=== PATIENT | male | born 1985 | race Caucasian/White ===

== ENCOUNTER 2017-10-28 09:46 | Emergency (ER) | payer OTHER ==
[2017-10-28] MEDS ORDERED: Ativan 2 MG/1 ML VIAL ONE ×3 (10:09→12:00)
[2017-10-28] MEDS ORDERED: Sodium Chloride 0.9% 1000 ML 1,000 ML ONE ×3 (10:09→12:00)
[2017-10-28] MEDS ORDERED: BENADRYL 50 MG/ML ONE ×2 (10:10→10:41)
[2017-10-28] MEDS: Sodium Chloride 0.9% 1000 ML 1,000 ML IV STA ×3 (10:11→12:03)
[2017-10-28] MEDS: Ativan 2 MG/1 ML VIAL IV ONE ×3 (10:11→12:40)
[2017-10-28] MEDS: BENADRYL 50 MG/ML IV ONE ×2 (10:12→10:41)
--- NOTE | 2017-10-28 10:16 | ERPHSYRPT ---
- History of Present Illness Time Seen by Provider: 10/28/17 09:52 Source: patient, EMS Exam Limitations: no limitations Patient Subjective Stated Complaint: Pt states "I have smoked 14 grams of meth since last friday and today I keep passing out." Triage Nursing Assessment: Pt alert and oriented X 3, skin pwd. PT unable to sit still. Pt arrived in shorts only. Pt had no shirt, no shoes. PT left eye blind. Pt speakin rapidly. no apparent respiratory distress. Pt arrived BLS transport. Physician History: Pt states, he smoked 14 g of Meth. since Friday ( 4 days), he arrived with ambulance. He states, he fell twice on his porch, denies severe head or other injury, LOC, headaches, chest pain, vomiting or other complaints. He is restless , with uncontrolled involuntary movements, but alert and oriented x4, not lethargic, not tachycardiac or febrile, no sign of respiratory difficulty.He denies being suicidal or homicidal. Timing/Duration: day(s) (4) Severity of Symptoms-Max: severe Severity of Symptoms-Current: severe Context related to: other (denies) Suicidal thoughts: other (denies) Associated Symptoms: denies symptoms Previous symptoms: same symptoms as today Allergies/Adverse Reactions: Penicillins Allergy (Intermediate, Verified 12/19/15 14:31) RED MAN SYNDROME Home Medications: No Reportable Medications [No Reported Medications] 10/28/17 [History] Hx Tetanus, Diphtheria Vaccination/Date Given: Yes Hx Influenza Vaccination/Date Given: Yes Hx Pneumococcal Vaccination/Date Given: No Immunizations Up to Date: Yes - Past Medical History Pertinent Past Medical History: Yes Neurological History: Migraines, Other ENT History: Other Cardiac History: No Pertinent History Respiratory History: No Pertinent History Endocrine Medical History: No Pertinent History Musculoskeletal History: No Pertinent History GI Medical History: No Pertinent History History: No Pertinent History Psycho-Social History: Bipolar Male Reproductive Disorders: No Pertinent History Other Medical History: Non-Hodgkins Lymphoma - Past Surgical History Neuro Surgical History: Other Cardiac: No Pertinent History Respiratory: No Pertinent History Gastrointestinal: No Pertinent History Genitourinary: No Pertinent History Musculoskeletal: No Pertinent History Male Surgical History: No Pertinent History Other Surgical History: L EYE REMOVAL. BRAIN - Social History Smoking Status: Current every day smoker How long have you smoked: years Exposure to second hand smoke: Yes Drug Use: marijuana, methamphetamines Patient Lives Alone: No - Review of Systems Constitutional: No Symptoms Psychological: Drug Abuse, No Alcohol Abuse, No Suicidal Ideations, No Homicidal Ideations, No Hallucinations All Other Systems: Reviewed and Negative - Nursing Vital Signs Nursing Vital Signs: Initial Vital Signs Temperature 97.8 F 10/28/17 09:47 Pulse Rate 102 H 10/28/17 09:47 Respiratory Rate 22 10/28/17 09:47 Blood Pressure 115/93 10/28/17 09:47 O2 Sat by Pulse Oximetry 96 10/28/17 09:47 Pain Scale Pain Intensity 0 - Physical Exam General Appearance: no apparent distress Eyes, Ears, Nose, Throat Exam: normal ENT inspection, pharynx normal, moist mucous membranes, other (left eye is missing due to old injury) Neck Exam: normal inspection, non-tender, supple, full range of motion, No carotid bruit, No JVD Respiratory Exam: normal breath sounds, lungs clear, airway intact, No chest tenderness, No respiratory distress Cardiovascular Exam: regular rate/rhythm, normal heart sounds, normal peripheral pulses, No murmur, No gallop, No tachycardia Gastrointestinal/Abdominal Exam: soft, normal bowel sounds, No tenderness, No distention, No mass, No guarding, No ecchymosis, No rebound Peripheral Pulses: carotid (R): 3+, carotid (L): 3+, femoral (R): 3+, femoral (L ): 3+, dorsalis-pedis (R): 3+, dorsalis-pedis (L): 3+ Current Suicidality: denies suicide plan Neurological Exam: alert, normal mood/affect, calm, oriented x 3, motor strength (equal, involuntary movements in all extremitites) Behavior/Eye Contact/Speech: alert & cooperative, intoxicated appearance Skin Exam: normal color, warm, dry, No rash SpO2 Interpretation: normal SpO2: 96 Oxygen Delivery: Room Air - Course Nursing assessment & vital signs reviewed: Yes EKG Interpreted by Me: RATE (100/min), NORMAL AXIS, NORMAL INTERVALS, Non- specific ST Changes - Radiology Exams Chest X-ray Interpretation: Reviewed by me, Negative - CT Exams Head CT Interpretation: Negative, Tele-radiologist Report Cervical Spine CT Interpretation: Negative, Tele-radiologist Report Ordered Tests: Active Orders 24 hr Category Date Time Status Sharepoint Developer STAT Care 10/28/17 09:53 Active Catheter-[place] STAT Care 10/28/17 12:03 Active EKG-ER Only STAT Care 10/28/17 09:52 Active IV Insertion STAT Care 10/28/17 09:52 Active CERVICAL SPINE WO CONTRAST [CT] Stat Exams 10/28/17 10:09 Completed CHEST 1 VIEW (PORTABLE) Stat Exams 10/28/17 10:10 Completed HEAD WITHOUT CONTRAST [CT] Stat Exams 10/28/17 10:09 Completed ACETAMINOPHEN Stat Lab 10/28/17 10:05 Completed CBC W DIFF Stat Lab 10/28/17 10:05 Completed CK-Creatinine Phosphokinase Stat Lab 10/28/17 10:05 Completed CMP Stat Lab 10/28/17 10:05 Completed ETHYL ALCOHOL Stat Lab 10/28/17 10:05 Completed MAGNESIUM Stat Lab 10/28/17 10:05 Completed Manual Differential NC Stat Lab 10/28/17 10:05 Completed SALICYLATE Stat Lab 10/28/17 10:05 Completed TROPONIN Q3H Lab 10/28/17 10:05 Completed TROPONIN Q3H Lab 10/28/17 13:00 Ordered TROPONIN Q3H Lab 10/28/17 16:00 Ordered TROPONIN Q3H Lab 10/28/17 19:00 Ordered TROPONIN Q3H Lab 10/28/17 22:00 Ordered UA W/RFX UR CULTURE Stat Lab 10/28/17 12:53 Ordered Urine Triage Profile Stat Lab 10/28/17 12:53 Ordered Medication Summary Generic Name Dose Route Start Last Admin Trade Name Freq PRN Reason Stop Dose Admin Potassium Chloride/Sodium Chloride 1,000 mls @ 100 mls/hr 10/28/17 12:45 07/13 12:45 Sodium Chloride 0.9% W/ 20 Meq Kcl/Liter IV 11/27/17 12:44 100 mls/hr .Q10H NOEMI Administration Discontinued Medications Generic Name Dose Route Start Last Admin Trade Name Freq PRN Reason Stop Dose Admin Diphenhydramine HCl 25 mg 10/28/17 10:10 10/28/17 10:12 Benadryl 50 Mg/Ml IV 10/28/17 10:11 25 mg STAT ONE Administration Diphenhydramine HCl Confirm 10/28/17 10:10 Benadryl 50 Mg/Ml Administered 10/28/17 10:11 Dose 50 mg .ROUTE .STK-MED ONE Diphenhydramine HCl 25 mg 10/28/17 10:37 10/28/17 10:41 Benadryl 50 Mg/Ml IV 10/28/17 10:38 25 mg STAT ONE Administration Diphenhydramine HCl Confirm 10/28/17 10:41 Benadryl 50 Mg/Ml Administered 10/28/17 10:42 Dose 50 mg .ROUTE .STK-MED ONE Sodium Chloride 1,000 mls @ 999 mls/hr 10/28/17 09:52 10/28/17 11:07 Sodium Chloride 0.9% 1000 Ml IV 10/28/17 10:52 Infused .Q1H1M STA Infusion Sodium Chloride Confirm 10/28/17 10:09 Sodium Chloride 0.9% 1000 Ml Administered 10/28/17 10:10 Dose 1,000 mls @ ud .ROUTE .STK-MED ONE Sodium Chloride 1,000 mls @ 999 mls/hr 10/28/17 11:02 10/28/17 11:06 Sodium Chloride 0.9% 1000 Ml IV 10/28/17 12:02 999 mls/hr .Q1H1M STA Administration Sodium Chloride Confirm 10/28/17 11:05 Sodium Chloride 0.9% 1000 Ml Administered 10/28/17 11:06 Dose 1,000 mls @ ud .ROUTE .STK-MED ONE Sodium Chloride 1,000 mls @ 999 mls/hr 10/28/17 11:55 10/28/17 12:03 Sodium Chloride 0.9% 1000 Ml IV 10/28/17 12:55 999 mls/hr .Q1H1M STA Administration Sodium Chloride Confirm 10/28/17 12:00 Sodium Chloride 0.9% 1000 Ml Administered 10/28/17 12:01 Dose 1,000 mls @ ud .ROUTE .STK-MED ONE Lorazepam 1 mg 10/28/17 09:52 10/28/17 10:11 Ativan 2 Mg/1 Ml Vial IV 10/28/17 09:53 1 mg STAT ONE Administration Lorazepam Confirm 10/28/17 10:09 Ativan 2 Mg/1 Ml Vial Administered 10/28/17 10:10 Dose 2 mg .ROUTE .STK-MED ONE Lorazepam 1 mg 10/28/17 11:02 10/28/17 11:05 Ativan 2 Mg/1 Ml Vial IV 10/28/17 11:03 1 mg STAT ONE Administration Lorazepam Confirm 10/28/17 11:05 Ativan 2 Mg/1 Ml Vial Administered 10/28/17 11:06 Dose 2 mg .ROUTE .STK-MED ONE Lorazepam Confirm 10/28/17 12:00 Ativan 2 Mg/1 Ml Vial Administered 10/28/17 12:01 Dose 2 mg .ROUTE .STK-MED ONE Lorazepam 1 mg 10/28/17 12:38 10/28/17 12:40 Ativan 2 Mg/1 Ml Vial IV 10/28/17 12:39 1 mg STAT ONE Administration Lab/Rad Data: Laboratory Result Diagrams 10/28/17 10:05 10/28/17 10:05 Laboratory Results 10/28/17 10/28/17 10/28/17 Range/Units 10:05 10:05 10:05 WBC 14.6 H (4.0-10.5) K/mm3 RBC 5.17 (4.1-5.6) M/mm3 Hgb 15.2 (12.5-18.0) gm/dl Hct 43.8 (42-50) % MCV 84.7 (78-100) fl MCH 29.4 (26-32) pg MCHC 34.7 (32-36) g/dl RDW 13.3 (11.5-14.0) % Plt Count 254 (150-450) K/mm3 MPV 10.2 H (6-9.5) fl Absolute Granulocytes 10.92 H (1.4-6.9) Sodium 137 (137-145) mmol/L Potassium 3.2 L (3.5-5.1) mmol/L Chloride 98 (98-107) mmol/L Carbon Dioxide 25 (22-30) mmol/L Anion Gap 14.0 (5-15) MEQ/L BUN 29 H (9-20) mg/dL Creatinine 2.04 H (0.66-1.25) mg/dL Estimated GFR 39.9 ML/MIN Glucose 86 (74-106) mg/dL Calcium 9.8 (8.4-10.2) mg/dL Magnesium 1.9 (1.6-2.3) mg/dL Total Bilirubin 0.90 (0.2-1.3) mg/dL AST 265 H (17-59) U/L ALT 99 H (0-50) U/L Alkaline Phosphatase 85 (38-126) U/L Creatine Kinase 9147 H (55-170) U/L Troponin I < 0.012 (0.000-0.034) ng/mL Serum Total Protein 8.3 H (6.3-8.2) g/dL Albumin 5.1 H (3.5-5.0) g/dL Salicylates < 1.0 L (2-20) mg/dL Acetaminophen < 10 L (10-30) ug/ml Ethyl Alcohol < 10 (0-10) mg/dL - Progress Progress: improved Progress Note: 10/28/17 12:43 Pt was given 2000 + ml NS, Herbert catheter inserted, small amount of clean urine drained, his potassium was 3.2 started slowly replacing it via iv NS + 20 meq KCL, CT head and Cervical spine negative, he was given 3x 1mg Ativan, and 25 mg Benadryl iv., calmed down, stopped his involuntary movements, his BP: 112/74 mmHg, pulse: 96/min, O2 sat: 98 % on R/A, afebrile, stable. I called Dr Stauffer in [facility] ED, discussed our results and patient's current condition, he accepted patient to be transferred there. Pt was informed, he agreed. He has been stable for the transport. Discussed with Dr.: Other (Dr Stauffer in [facility] ED) Counseled pt/family regarding: lab results, diagnosis, rad results - Departure Time of Disposition: 12:47 Departure Disposition: Transfer (to [facility] ED in [place]) Clinical Impression: Substance abuse, Hypokalemia Rhabdomyolysis Qualifiers: Rhabdomyolysis type: non-traumatic Qualified Code(s): M62.82 - Rhabdomyolysis Renal failure Qualifiers: Renal failure chronicity: acute Acute renal failure type: unspecified Qualified Code(s): N17.9 - Acute kidney failure, unspecified Condition: Stable Critical Care Time: No Critical Care Time(excluding separately billable procedures): 30-74 minutes Referrals: ANAND PERDOMO [Primary Care Provider] -
[2017-10-28 10:25] LABS: Granulocyte Absolute (ANC) 10.92 (1.4-6.9); Hematocrit 43.8 % (42-50); Hemoglobin 15.2 gm/dl (12.5-18.0); Mean Cell Volume 84.7 fl (78-100); Mean Corpuscular Hemoglobin 29.4 pg (26-32); Mean Corpuscular Hgb Concent. 34.7 g/dl (32-36); Mean Platelet Volume 10.2 fl (6-9.5); Platelet Count 254 K/mm3 (150-450); Red Blood Count 5.17 M/mm3 (4.1-5.6); Red Cell Distribution Width 13.3 % (11.5-14.0); White Blood Count 14.6 K/mm3 (4.0-10.5)
--- NOTE | 2017-10-28 10:31 | XRAY ---
Indication: Status post fall. Drug use. Comparison: November 03, 2008. Portable chest again demonstrates normal heart, lungs, and bony thorax with new bilateral nipple jewelry.
[2017-10-28 10:44] LABS: ALBUMIN 5.1 g/dL (3.5-5.0); ALKALINE PHOSPHATASE 85 U/L (38-126); BLOOD UREA NITROGEN 29 mg/dL (9-20); CHLORIDE 98 mmol/L (98-107); Calcium 9.8 mg/dL (8.4-10.2); Carbon Dioxide 25 mmol/L (22-30); Creatinine 1 2.04 mg/dL (0.66-1.25); Glucose 86 mg/dL (74-106); SGOT/AST 265 U/L (17-59); SGPT/ALT 99 U/L (0-50); SODIUM 137 mmol/L (137-145); Total Protein 8.3 g/dL (6.3-8.2)
[2017-10-28 10:45] LABS: Potassium 3.2 mmol/L (3.5-5.1)
[2017-10-28 10:49] LABS: ACETAMINOPHEN < 10 ug/ml (10-30); ETHYL ALCOHOL < 10 mg/dL (0-10); SALICYLATE < 1.0 mg/dL (2-20)
[2017-10-28 11:19] LABS: CK-Creatinine Phosphokinase 9147 U/L (55-170)
--- NOTE | 2017-10-28 11:19 | XRAY ---
Indication: Status post fall. Drug use. Multiple contiguous axial images obtained through the cervical spine. Sagittal and coronal reformatted images obtained. Comparison: None. Axial images negative for acute fracture, suspicious bony lesions, or spinal canal stenosis. Minimal C5-C6 degenerative endplate spurring with tiny subcortical cysts. Sagittal and coronal reformatted images demonstrates normal cervical alignment with minimal C5-C6 disc space narrowing. No acute compression fracture, subluxation, or jumped facet. Normal appearing craniocervical junction. Visualized noncontrasted soft tissues including lung apices unremarkable. CT head reported separately. Impression: 1. Negative acute fracture/subluxation. 2. C5-C6 degenerative changes. CTDI 20.87
--- NOTE | 2017-10-28 11:20 | XRAY ---
Indication: Status post fall. Drug use. Multiple contiguous axial images obtained through the head without contrast. Comparison: April 10, 2007. Stable right frontal lobe encephalomalacia and left anterior parietal craniotomy. No acute intracranial hemorrhage, hydrocephalus, or mass effect. Fourth ventricle is midline without hydrocephalus. Osborne-white matter differentiation preserved. Remaining bony calvarium intact. Visualized paranasal sinuses and mastoid air cells are clear. New prosthetic left orbit. Impression: Again nonacute CT head without contrast exam again with chronic features. CTDI 60.26
[2017-10-28] MEDS ORDERED: Sodium Chloride 0.9% W/ 20 mEq KCl/LITER 1,000 ML IV ONE (12:44)
[2017-10-28] MEDS: Sodium Chloride 0.9% W/ 20 mEq KCl/LITER 1,000 ML IV SCH (12:45)
[2017-10-28 12:47] VITALS: O2SAT 96
[2017-10-28 13:09] VITALS: BP 112/67; PULSE 93
[2017-10-28 13:27] LABS: Appearance HAZY (CLEAR); Leukocyte Esterase NEGATIVE (NEGATIVE); Specific Gravity 1.025 (1.005-1.025)
[2017-10-28 13:28] LABS: Bilirubin NEGATIVE (NEGATIVE); Blood 250 Ery/ul (0-5); Glucose NEGATIVE (NEGATIVE); Ketones MODERATE (NEGATIVE); Nitrite NEGATIVE (NEGATIVE); Protein,Urine Dip 30 (Negative); Urobilinogen NORMAL mg/dL (0-1)
[2017-10-28 13:29] LABS: RBC 50-100 /HPF (0-2); WBC 0-2 /HPF (0-5)
[2017-10-28 13:31] LABS: Bacteria RARE /HPF (NEGATIVE); Barbiturate,Urine NEGATIVE (NEGATIVE); Benzodiazepine,Urine NEGATIVE (NEGATIVE); Cocaine,Urine NEGATIVE (NEGATIVE); Epithelial Cells RARE /HPF (FEW); Methadone,Urine NEGATIVE (NEGATIVE); Opiate,Urine NEGATIVE (NEGATIVE); PCP,Urine NEGATIVE (NEGATIVE); THC,Urine POSITIVE (NEGATIVE)
[2017-10-28 13:32] LABS: Hyaline Casts >50 /LPF (0-2)
[2017-10-28 14:04] LABS: Amphetamine,Urine POSITIVE (NEGATIVE)
[2017-10-28 14:25] LABS: BAND 2 % (0.0-2.0); Lymphocytes 13 % (24-44); Neutrophils 85 % (36.-66.); Platelet Estimate NORMAL (NORMAL); Total Cells Counted 100; Toxic Granulation 1+
== END 2017-10-28 13:26 | disposition short-term general hospital (02) ==
LOC: ED 09:46
DX: F15.10 Other stimulant abuse, uncomplicated (principal); E87.6 Hypokalemia; M62.82 Rhabdomyolysis; N17.9 Acute kidney failure, unspecified; F31.9 Bipolar disorder, unspecified; Z85.72 Personal history of non-Hodgkin lymphomas; Z72.0 Tobacco use
CPT/HCPCS: 36000; 36415; 51702; 70450; 71045; 72125; 80053; 80307; 81000; 82550; 83735; 84484; 85025; 87086; 93005; 93041; 96360; 96361; 96365; 96366; 96374; 96375; 96376; 99285; G0481; J1200; J2060; G0480

== ENCOUNTER 2018-01-16 09:15 | Emergency (ER) | payer OTHER ==
[2018-01-16] MEDS ORDERED: Sodium Chloride 0.9% 1000 ML 1,000 ML IV STA (09:43)
[2018-01-16] MEDS ORDERED: Ativan 2 MG/1 ML VIAL IV ONE (09:43)
[2018-01-16] MEDS ORDERED: Zofran 4 MG/2 ML VIAL IV ONE (09:43)
--- NOTE | 2018-01-16 09:43 | ERPHSYRPT ---
- History of Present Illness Time Seen by Provider: 01/16/18 09:30 Source: patient, EMS Exam Limitations: no limitations Patient Subjective Stated Complaint: pt here for not eating,sleeping for 5 days , pt walked to shelter to turn self in for drug abuse and shelter called [facility] to have pt [facility]. pt had syringes and meth on person. Triage Nursing Assessment: pt alert, slurred speach, restless and jerking all over, states he wants help and to go to shelter. he also co pain to right big toe, he states he stubbed it walking, pt is very dirty and dishovled, resp easy, skin w/d/p Physician History: 32 y/o white male brought to ED via ems for evaluation. pt was in shelter after pt turned himself in for methamphetamine use on a 5 day binge. last use 1 or 2 this am. also states used pot yesterday. the shelter contacted EMS for transfer to the ED. pt wants help. pt recently missed his [facility]pt appt with [facility]. pt denies suicidal or homicidal intention/thoughts. he c/o right 1st toe pain after injurying it yesterday. pt not eating or sleeping over this pd of time. no other c/o . Timing/Duration: day(s) (5) Severity of Symptoms-Max: moderate Severity of Symptoms-Current: moderate Context related to: other (drug abuse) Suicidal thoughts: other (none) Associated Symptoms: agitated, frustrated, impaired concentration, insomnia Previous symptoms: same symptoms as today Allergies/Adverse Reactions: Penicillins Allergy (Intermediate, Verified 01/16/18 09:26) RED MAN SYNDROME Home Medications: No Reportable Medications [No Reported Medications] 10/28/17 [History] Hx Tetanus, Diphtheria Vaccination/Date Given: No Hx Influenza Vaccination/Date Given: No Hx Pneumococcal Vaccination/Date Given: No Immunizations Up to Date: Yes - Past Medical History Pertinent Past Medical History: Yes Neurological History: Migraines, Other ENT History: Other Cardiac History: No Pertinent History Respiratory History: No Pertinent History Endocrine Medical History: No Pertinent History Musculoskeletal History: No Pertinent History GI Medical History: No Pertinent History History: No Pertinent History Psycho-Social History: Bipolar Male Reproductive Disorders: No Pertinent History Other Medical History: Non-Hodgkins Lymphoma - Past Surgical History Past Surgical History: Yes Neuro Surgical History: Other Cardiac: No Pertinent History Respiratory: No Pertinent History Gastrointestinal: No Pertinent History Genitourinary: No Pertinent History Musculoskeletal: No Pertinent History Male Surgical History: No Pertinent History Other Surgical History: L EYE REMOVAL. BRAIN - Social History Smoking Status: Current every day smoker How long have you smoked: years Exposure to second hand smoke: Yes Drug Use: marijuana, methamphetamines Patient Lives Alone: No (he states he has no where to go home too) - Review of Systems Constitutional: No Symptoms, No Fever, No Fatigue, No Malaise Eyes: No Symptoms, No Eye Pain, No Eye Redness Ears, Nose, & Throat: No Symptoms, No Ear Pain, No Ear Discharge Respiratory: No Symptoms, No Cough, No Dyspnea Cardiac: No Symptoms, No Chest Pain, No Palpitations, No Syncope Abdominal/Gastrointestinal: Appetite Changes (not eating), No Abdominal Pain, No Nausea, No Vomiting Genitourinary Symptoms: No Symptoms Musculoskeletal: Injury ( right first toe) Skin: No Symptoms Neurological: Tics Psychological: Drug Abuse, Anxiety, Emotional Lability, Other (insomnia) Hematologic/Lymphatic: No Symptoms Immunological/Allergic: No Symptoms All Other Systems: Reviewed and Negative - Nursing Vital Signs Nursing Vital Signs: Initial Vital Signs Temperature 97.8 F 01/16/18 09:18 Pulse Rate 86 01/16/18 09:18 Respiratory Rate 16 01/16/18 09:18 Blood Pressure 126/80 01/16/18 09:18 O2 Sat by Pulse Oximetry 97 01/16/18 09:18 Pain Scale Pain Intensity 0 - Physical Exam General Appearance: no apparent distress, alert, anxiety Eyes, Ears, Nose, Throat Exam: TMs normal, dry mucous membranes Neck Exam: normal inspection, non-tender, supple, full range of motion Respiratory Exam: normal breath sounds, lungs clear, airway intact, No chest tenderness, No respiratory distress, No accessory muscle use, No rhonchi, No wheezing, No stridor Cardiovascular Exam: regular rate/rhythm, normal heart sounds, normal peripheral pulses Gastrointestinal/Abdominal Exam: soft, normal bowel sounds, No tenderness, No distention, No mass, No guarding, No rebound Extremities Exam: normal range of motion, No evidence of injury, No edema, No tenderness Neurological Exam: alert, 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 tested, agitated, anxious Appearance: disheveled, impaired insight Behavior/Eye Contact/Speech: alert & cooperative, avoids eye contact, increased rate of speech, intoxicated appearance Thoughts/Hallucinations: no apparent hallucination, paranoid Skin Exam: normal color, warm SpO2: 97 Oxygen Delivery: Room Air - Course Nursing assessment & vital signs reviewed: Yes EKG Interpreted by Me: RATE (82), Sinus Rhythm (no change from ekg dated 10/28/17) , NORMAL AXIS, NORMAL INTERVALS, NORMAL QRS, NORMAL ST-T Ordered Tests: Active Orders 24 hr Category Date Time Status Granite Polisher Machine STAT Care 01/16/18 09:44 Active EKG-ER Only STAT Care 01/16/18 09:43 Active IV Insertion STAT Care 01/16/18 09:43 Active Psychiatric Consult STAT Cons 01/16/18 12:00 Active Regular Diet Diet 01/16/18 Lunch Active FOOT (MINIMUM 3 VIEWS) Stat Exams 01/16/18 10:28 Completed ACETAMINOPHEN Stat Lab 01/16/18 09:43 Completed CBC W DIFF Stat Lab 01/16/18 09:43 Completed CMP Stat Lab 01/16/18 09:43 Completed CULTURE,URINE Stat Lab 01/16/18 12:01 Received ETHYL ALCOHOL Stat Lab 01/16/18 09:43 Completed UA W/ MICROSCOPIC Stat Lab 01/16/18 12:01 Completed Urine Triage Profile Stat Lab 01/16/18 12:01 Completed Medication Summary Discontinued Medications Generic Name Dose Route Start Last Admin Trade Name Freq PRN Reason Stop Dose Admin Sodium Chloride 1,000 mls @ 999 mls/hr 01/16/18 09:43 01/16/18 10:17 Sodium Chloride 0.9% 1000 Ml IV 01/16/18 10:43 999 mls/hr .Q1H1M STA Administration Sodium Chloride Confirm 01/16/18 10:15 Sodium Chloride 0.9% 1000 Ml Administered 01/16/18 10:16 Dose 1,000 mls @ ud .ROUTE .STK-MED ONE Lorazepam 1 mg 01/16/18 09:43 01/16/18 10:20 Ativan 2 Mg/1 Ml Vial IV 01/16/18 09:44 1 mg STAT ONE Administration Lorazepam Confirm 01/16/18 10:15 Ativan 2 Mg/1 Ml Vial Administered 01/16/18 10:16 Dose 2 mg .ROUTE .STK-MED ONE Ondansetron HCl 4 mg 01/16/18 09:43 01/16/18 10:20 Zofran 4 Mg/2 Ml Vial IV 01/16/18 09:44 4 mg STAT ONE Administration Ondansetron HCl Confirm 01/16/18 10:15 Zofran 4 Mg/2 Ml Vial Administered 01/16/18 10:16 Dose 4 mg .ROUTE .STK-MED ONE Lab/Rad Data: Laboratory Result Diagrams 01/16/18 09:43 01/16/18 09:43 Laboratory Results 01/16/18 01/16/18 01/16/18 Range/Units 12:01 12:01 09:43 WBC (4.0-10.5) K/mm3 RBC (4.1-5.6) M/mm3 Hgb (12.5-18.0) gm/dl Hct (42-50) % MCV (78-100) fl MCH (26-32) pg MCHC (32-36) g/dl RDW (11.5-14.0) % Plt Count (150-450) K/mm3 MPV (6-9.5) fl Gran % (36.0-66.0) % Eos # (Auto) (0-0.5) Absolute Lymphs (auto) (1.0-4.6) Absolute Monos (auto) (0.0-1.3) Lymphocytes % (24.0-44.0) % Monocytes % (0.0-12.0) % Eosinophils % (0.00-5.0) % Basophils % (0.0-0.4) % Absolute Granulocytes (1.4-6.9) Basophils # (0-0.4) Sodium 136 L (137-145) mmol/L Potassium 3.6 (3.5-5.1) mmol/L Chloride 99 (98-107) mmol/L Carbon Dioxide 23 (22-30) mmol/L Anion Gap 17.7 H (5-15) MEQ/L BUN 23 H (9-20) mg/dL Creatinine 0.89 (0.66-1.25) mg/dL Estimated GFR > 60.0 ML/MIN Glucose 76 (74-106) mg/dL Calcium 10.0 (8.4-10.2) mg/dL Total Bilirubin 0.90 (0.2-1.3) mg/dL AST 55 (17-59) U/L ALT 34 (0-50) U/L Alkaline Phosphatase 90 (38-126) U/L Serum Total Protein 7.9 (6.3-8.2) g/dL Albumin 5.1 H (3.5-5.0) g/dL Ur Collection Type CLEAN CATCH Urine Color DARK YELLOW (YELLOW) Urine Appearance CLEAR (CLEAR) Urine pH 5.0 (5-6) Ur Specific [place] 1.030 (1.005-1.025) Urine Protein TRACE (Negative) Urine Ketones MODERATE (NEGATIVE) Urine Blood TRACE NON-HEM (0-5) Cirilo/ul Urine Nitrite NEGATIVE (NEGATIVE) Urine Bilirubin NEGATIVE (NEGATIVE) Urine Urobilinogen NORMAL (0-1) mg/dL Ur Leukocyte Esterase NEGATIVE (NEGATIVE) Urine Microscopic RBC 2-5 (0-2) /HPF Urine Microscopic WBC 0-2 (0-5) /HPF Ur Epithelial Cells FEW (FEW) /HPF Urine Bacteria MODERATE (NEGATIVE) /HPF Hyaline Casts 5-10 (0-2) /LPF Urine Mucus MODERATE (NEGATIVE) /HPF Urine Culture Reflexed YES (NO) Urine Glucose NEGATIVE (NEGATIVE) mg/dL Urine Opiates Level NEGATIVE (NEGATIVE) Ur Methadone NEGATIVE (NEGATIVE) Acetaminophen < 10 L (10-30) ug/ml Urine Barbiturates NEGATIVE (NEGATIVE) Ur Phencyclidine (PCP) NEGATIVE (NEGATIVE) Urine Amphetamine POSITIVE (NEGATIVE) U Benzodiazepine Level NEGATIVE (NEGATIVE) Urine Cocaine NEGATIVE (NEGATIVE) Urine Marijuana (THC) POSITIVE (NEGATIVE) Ethyl Alcohol < 10 (0-10) mg/dL 01/16/18 Range/Units 09:43 WBC 13.4 H (4.0-10.5) K/mm3 RBC 4.75 (4.1-5.6) M/mm3 Hgb 14.2 (12.5-18.0) gm/dl Hct 41.0 L (42-50) % MCV 86.3 (78-100) fl MCH 29.9 (26-32) pg MCHC 34.6 (32-36) g/dl RDW 14.8 H (11.5-14.0) % Plt Count 248 (150-450) K/mm3 MPV 9.9 H (6-9.5) fl Gran % 73.9 H (36.0-66.0) % Eos # (Auto) 0.07 (0-0.5) Absolute Lymphs (auto) 2.13 (1.0-4.6) Absolute Monos (auto) 1.25 (0.0-1.3) Lymphocytes % 15.9 L (24.0-44.0) % Monocytes % 9.3 (0.0-12.0) % Eosinophils % 0.5 (0.00-5.0) % Basophils % 0.4 (0.0-0.4) % Absolute Granulocytes 9.87 H (1.4-6.9) Basophils # 0.05 (0-0.4) Sodium (137-145) mmol/L Potassium (3.5-5.1) mmol/L Chloride (98-107) mmol/L Carbon Dioxide (22-30) mmol/L Anion Gap (5-15) MEQ/L BUN (9-20) mg/dL Creatinine (0.66-1.25) mg/dL Estimated GFR ML/MIN Glucose (74-106) mg/dL Calcium (8.4-10.2) mg/dL Total Bilirubin (0.2-1.3) mg/dL AST (17-59) U/L ALT (0-50) U/L Alkaline Phosphatase (38-126) U/L Serum Total Protein (6.3-8.2) g/dL Albumin (3.5-5.0) g/dL Ur Collection Type Urine Color (YELLOW) Urine Appearance (CLEAR) Urine pH (5-6) Ur Specific [place] (1.005-1.025) Urine Protein (Negative) Urine Ketones (NEGATIVE) Urine Blood (0-5) Ciriol/ul Urine Nitrite (NEGATIVE) Urine Bilirubin (NEGATIVE) Urine Urobilinogen (0-1) mg/dL Ur Leukocyte Esterase (NEGATIVE) Urine Microscopic RBC (0-2) /HPF Urine Microscopic WBC (0-5) /HPF Ur Epithelial Cells (FEW) /HPF Urine Bacteria (NEGATIVE) /HPF Hyaline Casts (0-2) /LPF Urine Mucus (NEGATIVE) /HPF Urine Culture Reflexed (NO) Urine Glucose (NEGATIVE) mg/dL Urine Opiates Level (NEGATIVE) Ur Methadone (NEGATIVE) Acetaminophen (10-30) ug/ml Urine Barbiturates (NEGATIVE) Ur Phencyclidine (PCP) (NEGATIVE) Urine Amphetamine (NEGATIVE) U Benzodiazepine Level (NEGATIVE) Urine Cocaine (NEGATIVE) Urine Marijuana (THC) (NEGATIVE) Ethyl Alcohol (0-10) mg/dL xray right foot-old right 5tgh metatarsal shaft fx; tiny heel spurs. no acute process - Progress Progress: improved, re-examined Progress Note: 01/16/18 14:59 pt is more awake and alert and oreiented. pt denies again he is suicidal and homicidal. he is not under arrest and he does not want any inpt admission. i told him it would be in his best medical interest to observe him for 24 hours but he refuses. he wants to go home. i discussed risks of leaving, benefits to staying and alternative options. he wants to go home. we will release him [facility]. pt will sign form. Counseled pt/family regarding: drug and/or alcohol abuse, lab results, diagnosis , need for follow-up - Departure Time of Disposition: 15:02 Departure Disposition: [facility] Clinical Impression: Methamphetamine abuse, Opiate abuse, continuous Condition: Stable Critical Care Time: No Referrals: ANAND PERDOMO [Primary Care Provider] - Additional Instructions: drink plenty of clear liquids. stop your methamphetamine, marijuana, opiate and benzodiazepine abuse. follow up with [facility] for outpatient treatment.
[2018-01-16 09:59] LABS: BASOPHIL % 0.4 % (0.0-0.4); Basophil (Absolute #) 0.05 (0-0.4); Eosinophil % 0.5 % (0.00-5.0); Eosinophil (Absolute #) 0.07 (0-0.5); Granulocyte Absolute (ANC) 9.87 (1.4-6.9); Granulocytes % 73.9 % (36.0-66.0); Hemoglobin 14.2 gm/dl (12.5-18.0); Lymphocyte (Absolute #) 2.13 (1.0-4.6); Lymphocytes % 15.9 % (24.0-44.0); Mean Cell Volume 86.3 fl (78-100); Mean Corpuscular Hemoglobin 29.9 pg (26-32); Mean Corpuscular Hgb Concent. 34.6 g/dl (32-36); Mean Platelet Volume 9.9 fl (6-9.5); Monocyte (Absolute #) 1.25 (0.0-1.3); Monocytes % 9.3 % (0.0-12.0); Platelet Count 248 K/mm3 (150-450); Red Blood Count 4.75 M/mm3 (4.1-5.6); Red Cell Distribution Width 14.8 % (11.5-14.0); White Blood Count 13.4 K/mm3 (4.0-10.5)
[2018-01-16] MEDS ORDERED: Sodium Chloride 0.9% 1000 ML 1,000 ML ONE (10:15)
[2018-01-16] MEDS ORDERED: Zofran 4 MG/2 ML VIAL ONE (10:15)
[2018-01-16] MEDS ORDERED: Ativan 2 MG/1 ML VIAL ONE (10:15)
[2018-01-16 10:24] LABS: ALBUMIN 5.1 g/dL (3.5-5.0); ALKALINE PHOSPHATASE 90 U/L (38-126); ANION GAP 17.7 MEQ/L (5-15); BLOOD UREA NITROGEN 23 mg/dL (9-20); CHLORIDE 99 mmol/L (98-107); Carbon Dioxide 23 mmol/L (22-30); Creatinine 1 0.89 mg/dL (0.66-1.25); Glucose 76 mg/dL (74-106); Potassium 3.6 mmol/L (3.5-5.1); SGOT/AST 55 U/L (17-59); SGPT/ALT 34 U/L (0-50); SODIUM 136 mmol/L (137-145); Total Protein 7.9 g/dL (6.3-8.2)
[2018-01-16 10:27] LABS: ACETAMINOPHEN < 10 ug/ml (10-30); ETHYL ALCOHOL < 10 mg/dL (0-10)
--- NOTE | 2018-01-16 10:49 | XRAY ---
Indication: Pain following injury. Comparison: None 3 nonweightbearing views of the right foot demonstrates old distal 5th metatarsal shaft fracture and tiny heel spurs. No other bony, articular, or soft tissue abnormalities.
[2018-01-16 12:22] LABS: Appearance CLEAR (CLEAR); Bilirubin NEGATIVE (NEGATIVE); Blood TRACE NON-HEM Ery/ul (0-5); Glucose NEGATIVE (NEGATIVE); Ketones MODERATE (NEGATIVE); Leukocyte Esterase NEGATIVE (NEGATIVE); Nitrite NEGATIVE (NEGATIVE); Protein,Urine Dip TRACE (Negative); Urobilinogen NORMAL mg/dL (0-1)
[2018-01-16 12:23] LABS: Bacteria MODERATE /HPF (NEGATIVE); Epithelial Cells FEW /HPF (FEW); Mucus MODERATE /HPF (NEGATIVE); WBC 0-2 /HPF (0-5)
[2018-01-16 12:47] LABS: Barbiturate,Urine NEGATIVE (NEGATIVE); Benzodiazepine,Urine NEGATIVE (NEGATIVE); Cocaine,Urine NEGATIVE (NEGATIVE); Methadone,Urine NEGATIVE (NEGATIVE); Opiate,Urine NEGATIVE (NEGATIVE); PCP,Urine NEGATIVE (NEGATIVE); THC,Urine POSITIVE (NEGATIVE)
[2018-01-16 14:07] LABS: Amphetamine,Urine POSITIVE (NEGATIVE)
[2018-01-16 15:44] VITALS: BP 115/68; PULSE 82; O2SAT 100
== END 2018-01-16 15:44 | disposition left against medical advice (07) ==
LOC: ED 09:15
DX: F15.10 Other stimulant abuse, uncomplicated (principal); F11.10 Opioid abuse, uncomplicated; G47.00 Insomnia, unspecified; S99.921A Unspecified injury of right foot, initial encounter; W22.09XA Striking against other stationary object, initial encounter; Y93.01 Activity, walking, marching and hiking
CPT/HCPCS: 36000; 36415; 73630; 80053; 80307; 81000; 85025; 87086; 90791; 93005; 93041; 96360; 96374; 96375; 99284; 99285; G0481; J2060; J2405; Q3014; G0480

== ENCOUNTER 2018-01-16 17:32 | Emergency (ER) | payer OTHER ==
--- NOTE | 2018-01-16 17:52 | ERPHSYRPT ---
- History of Present Illness Time Seen by Provider: 01/16/18 17:46 Source: patient Exam Limitations: no limitations Physician History: 32 y/o white male returns to ED a few hours after being discharged by [facility]. pt never left the hospital because his ride never came. pt returns to ED because now he states he is suicidal. [place] [address] he had a positive drug screen for methamphetamines, opiates and benzodiazepines. pt is a chronic drug abuser and wants help. he wants to "end it " Timing/Duration: today Severity of Symptoms-Max: mild Severity of Symptoms-Current: mild Context related to: other (chronic drug abuse) Associated Symptoms: suicidal ideation Previous symptoms: same symptoms as today Allergies/Adverse Reactions: Penicillins Allergy (Intermediate, Verified 01/16/18 09:26) RED MAN SYNDROME Home Medications: Citalopram Hydrobromide 20 mg* [ceLEXa 20 MG] 30 mg PO HS 01/16/18 [History] Gabapentin 300 mg PO TID 01/16/18 [History] Trazodone HCl 100 mg PO HS 01/16/18 [History] Hx Tetanus, Diphtheria Vaccination/Date Given: No Hx Influenza Vaccination/Date Given: No Hx Pneumococcal Vaccination/Date Given: No - Past Medical History Pertinent Past Medical History: Yes Neurological History: Migraines, Other ENT History: Other Cardiac History: No Pertinent History Respiratory History: No Pertinent History Endocrine Medical History: No Pertinent History Musculoskeletal History: No Pertinent History GI Medical History: No Pertinent History History: No Pertinent History Psycho-Social History: Bipolar Male Reproductive Disorders: No Pertinent History Other Medical History: Non-Hodgkins Lymphoma - Past Surgical History Past Surgical History: Yes Neuro Surgical History: Other Cardiac: No Pertinent History Respiratory: No Pertinent History Gastrointestinal: No Pertinent History Genitourinary: No Pertinent History Musculoskeletal: No Pertinent History Male Surgical History: No Pertinent History Other Surgical History: L EYE REMOVAL. BRAIN - Social History Smoking Status: Current every day smoker How long have you smoked: years Exposure to second hand smoke: Yes Drug Use: marijuana, methamphetamines Patient Lives Alone: No (he states he has no where to go home too) - Review of Systems Constitutional: No Symptoms Eyes: No Symptoms Ears, Nose, & Throat: No Symptoms Respiratory: No Symptoms Cardiac: No Symptoms Abdominal/Gastrointestinal: No Symptoms Genitourinary Symptoms: No Symptoms Musculoskeletal: Injury (right big toe pain. no fx or acute process ) Skin: No Symptoms Psychological: Drug Abuse, Anxiety, Suicidal Ideations, Hallucinations, No Homicidal Ideations Endocrine: No Symptoms Hematologic/Lymphatic: No Symptoms Immunological/Allergic: No Symptoms All Other Systems: Reviewed and Negative - Nursing Vital Signs Nursing Vital Signs: Initial Vital Signs Temperature 98.5 F 01/16/18 17:40 Respiratory Rate 20 01/16/18 17:40 Pain Scale Pain Intensity 0 - Physical Exam General Appearance: no apparent distress, alert, anxiety Eyes, Ears, Nose, Throat Exam: normal ENT inspection, TMs normal Neck Exam: normal inspection, non-tender, supple, full range of motion Respiratory Exam: normal breath sounds, lungs clear, airway intact, No chest tenderness, No respiratory distress, No accessory muscle use, No rhonchi, No wheezing, No stridor Cardiovascular Exam: regular rate/rhythm, normal heart sounds, normal peripheral pulses Gastrointestinal/Abdominal Exam: soft, normal bowel sounds, No tenderness, No guarding, No rebound Current Suicidality: has suicide plan Neurological Exam: alert, normal mood/affect, calm, 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 will contact [facility] again since pt wants help and is now suicidal. 01/16/18 23:09 [id number] [facility] rn working under Dr. Ramos(psychiatrist) for [facility]. the pts hx, condition and medical workup results were sent to them. they reviewed information and accept pt in transfer for admission. Counseled pt/family regarding: lab results, diagnosis - Departure Time of Disposition: 23:11 Departure Disposition: Transfer Clinical Impression: Suicidal ideation, Polysubstance (including opioids) dependence with physiol dependence Condition: Stable Critical Care Time: No Referrals: ANAND PERDOMO [Primary Care Provider] -
[2018-01-16 21:00] VITALS: PULSE 82
== END 2018-01-17 00:22 | disposition short-term general hospital (02) ==
LOC: ED 17:32
DX: R45.851 Suicidal ideations (principal); F11.20 Opioid dependence, uncomplicated
CPT/HCPCS: 99284; 99285

== ENCOUNTER 2019-06-07 22:07 | Emergency (ER) | payer OTHER ==
[~2019-06-07 22:07] MED LIST: Amidate 20 MG/10 ML IV ONE
[2019-06-07] MEDS ORDERED: Ativan 2 MG/1 ML VIAL IV ONE ×3 (22:08→23:03)
[2019-06-07] MEDS ORDERED: Zemuron 100 MG/10 ML IV ONE ×3 (22:08)
[2019-06-07] MEDS ORDERED: Sodium Chloride 0.9% 1000 ML 1,000 ML IV STA (22:10)
[2019-06-07] MEDS ORDERED: Zofran 4 MG/2 ML VIAL IV ONE (22:10)
--- NOTE | 2019-06-07 22:10 | ERPHSYRPT ---
- History of Present Illness Time Seen by Provider: 06/07/19 22:09 Source: patient, EMS Exam Limitations: clinical condition, intoxication Physician History: This is a 34-year-old white male who has a known history of polysubstance abuse including opioid abuse and methamphetamine abuse. Patient states that he began using methamphetamines earlier today after a 4-month period of no methamphetamine use. Patient arrived at the [facility] stating that he wanted to be arrested because he stole his uncles tools. No police report was filed and therefore the patient left. He returned and stated that he was suicidal and homicidal he wanted to hurt himself and others. The ambulance service was contacted and the patient was transported to our facility. Patient did receive 5 mg of intravenous Versed because during the EMS transport, the patient became agitated and combative. Patient arrives to the emergency room somewhat agitated and combative. Timing/Duration: today Severity of Symptoms-Max: moderate Severity of Symptoms-Current: moderate Context related to: living circumstances Suicidal thoughts: ingestion, specific plan Associated Symptoms: agitated, hallucinating (Per his report, he is hearing voices), ingestion Previous symptoms: same symptoms as today Allergies/Adverse Reactions: Penicillins Allergy (Intermediate, Verified 06/07/19 22:42) [employer] Home Medications: Citalopram Hydrobromide 20 mg* [ceLEXa 20 MG] 30 mg PO HS 01/16/18 [History] Gabapentin 300 mg PO TID 01/16/18 [History] Trazodone HCl 100 mg PO HS 01/16/18 [History] Hx Tetanus, Diphtheria Vaccination/Date Given: No Hx Influenza Vaccination/Date Given: No Hx Pneumococcal Vaccination/Date Given: No - Past Medical History Pertinent Past Medical History: Yes Neurological History: Migraines, Other ENT History: Other Cardiac History: No Pertinent History Respiratory History: No Pertinent History Endocrine Medical History: No Pertinent History Musculoskeletal History: No Pertinent History GI Medical History: No Pertinent History History: No Pertinent History Psycho-Social History: Bipolar Male Reproductive Disorders: No Pertinent History Other Medical History: Non-Hodgkins Lymphoma - Past Surgical History Past Surgical History: Yes Neuro Surgical History: Other Cardiac: No Pertinent History Respiratory: No Pertinent History Gastrointestinal: No Pertinent History Genitourinary: No Pertinent History Musculoskeletal: No Pertinent History Male Surgical History: No Pertinent History Other Surgical History: L EYE REMOVAL. BRAIN - Social History Smoking Status: Current every day smoker How long have you smoked: years Exposure to second hand smoke: Yes Drug Use: marijuana, methamphetamines Patient Lives Alone: No (he states he has no where to go home too) - Review of Systems Constitutional: No Symptoms Eyes: No Symptoms Ears, Nose, & Throat: No Symptoms Respiratory: No Symptoms Cardiac: No Symptoms Abdominal/Gastrointestinal: No Symptoms Genitourinary Symptoms: No Symptoms Musculoskeletal: No Symptoms Skin: No Symptoms Neurological: No Symptoms Psychological: Drug Abuse, Suicidal Ideations, Homicidal Ideations, Emotional Lability, Hallucinations Endocrine: No Symptoms Hematologic/Lymphatic: No Symptoms Immunological/Allergic: No Symptoms All Other Systems: Reviewed and Negative - Nursing Vital Signs Nursing Vital Signs: Initial Vital Signs Pulse Rate 79 06/07/19 22:26 Respiratory Rate 24 06/07/19 22:26 Blood Pressure 132/88 06/07/19 22:26 O2 Sat by Pulse Oximetry 98 06/07/19 22:26 Pain Scale Pain Intensity 0 - Physical Exam General Appearance: moderate distress, alert, anxiety, other (intoxicated) Eyes, Ears, Nose, Throat Exam: other (left eye removed during surgery in the past for brain cancer) Neck Exam: normal inspection, non-tender, supple, full range of motion Respiratory Exam: normal breath sounds, lungs clear, airway intact, No chest tenderness, No respiratory distress Cardiovascular Exam: regular rate/rhythm, normal heart sounds, normal peripheral pulses Gastrointestinal/Abdominal Exam: soft, normal bowel sounds, No tenderness Extremities Exam: normal inspection, normal range of motion, No evidence of injury Current Suicidality: has suicide plan Neurological Exam: agitated, anxious Appearance: disheveled, impaired insight Behavior/Eye Contact/Speech: uncooperative, intoxicated appearance Thoughts/Hallucinations: auditory hallucinations Skin Exam: normal color, warm, dry SpO2 Interpretation: normal O2 Delivery: Room Air Procedures - Intubation Intubation Indications: airway protection, other (Stream agitation) Intubation Method: glidescope Tube Size (cm): 7.5 Medications: Lorazepam (Ativan), Midazolam (Versed), Etomidate, Succinylcholine C-Spine: maintained Endotracheal Tube Confirmation: bilateral breath sounds, positive end tidal CO2 , good rise & fall of chest Intubation Complications: no complications Performed By: ED Physician Post Intubation Xray: Yes Progress/X-ray Impression: 06/08/19 01:12 Post intubation chest x-ray reveals the tip of the endotracheal tube just above the kandace. - Course Nursing assessment & vital signs reviewed: Yes EKG Interpreted by Me: RATE (92), Sinus Rhythm, NORMAL AXIS, NORMAL INTERVALS, NORMAL QRS, Other (no change from ekg dated 01/16/18) Ordered Tests: Active Orders 24 hr Category Date Time Status CO2 Monitoring STAT Care 06/07/19 22:20 Active Superintendent Maintenance STAT Care 06/07/19 22:11 Active EKG-ER Only STAT Care 06/07/19 22:10 Active IV Insertion STAT Care 06/07/19 22:10 Active Psychiatric Consult STAT Cons 06/07/19 22:10 Active CHEST 1 VIEW (PORTABLE) Stat Exams 06/08/19 01:01 Taken ABG [ARTERIAL BLOOD GASES] Stat Lab 06/08/19 00:55 Completed UA W/RFX UR CULTURE Stat Lab 06/07/19 22:20 Completed Urine Triage Profile Stat Lab 06/07/19 22:20 Completed Medication Summary Generic Name Dose Route Start Last Admin Trade Name Fredung PRN Reason Stop Dose Admin Midazolam HCl 50 mg/ Sodium 250 mls @ 10 mls/hr 06/07/19 23:35 06/08/19 01:59 Chloride IV 07/07/19 23:34 10 mg/hr .Q24H PRN 50 mls/hr SEDATION Titration Protocol 2 MG/HR Discontinued Medications Generic Name Dose Route Start Last Admin Trade Name Fredung PRN Reason Stop Dose Admin Etomidate 20 mg 06/08/19 00:59 Amidate 20 Mg/10 Ml IV 06/08/19 01:00 STAT ONE Sodium Chloride 1,000 mls @ 999 mls/hr 06/07/19 22:10 06/07/19 23:09 Sodium Chloride 0.9% 1000 Ml IV 06/07/19 23:10 999 mls/hr .Q1H1M STA Administration Sodium Chloride Confirm 06/07/19 23:08 Sodium Chloride 0.9% 1000 Ml Administered 06/07/19 23:09 Dose 1,000 mls @ ud .ROUTE .STK-MED ONE Sodium Chloride Confirm 06/08/19 00:23 Sodium Chloride 0.9% 250 Ml Administered 06/08/19 00:24 Dose 250 mls @ ud IV .STK-MED ONE Sodium Chloride Confirm 06/08/19 01:09 Sodium Chloride 0.9% 1000 Ml Administered 06/08/19 01:10 Dose 1,000 mls @ ud .ROUTE .STK-MED ONE Lorazepam 2 mg 06/07/19 23:03 06/07/19 23:07 Ativan 2 Mg/1 Ml Vial IV 06/07/19 23:04 2 mg STAT ONE Administration Lorazepam Confirm 06/07/19 23:05 Ativan 2 Mg/1 Ml Vial Administered 06/07/19 23:06 Dose 2 mg .ROUTE .STK-MED ONE Lorazepam 3 mg 06/07/19 23:53 Ativan 2 Mg/1 Ml Vial IM 06/07/19 23:54 STAT ONE Lorazepam Confirm 06/07/19 23:54 Ativan 2 Mg/1 Ml Vial Administered 06/07/19 23:55 Dose 4 mg .ROUTE .STK-MED ONE Lorazepam 3 mg 06/08/19 01:00 Ativan 2 Mg/1 Ml Vial IV 06/08/19 01:01 STAT ONE Midazolam HCl 5 mg 06/07/19 23:34 Versed 2 Mg/2 Ml Injection IV 06/07/19 23:35 1XONLY ONE Midazolam HCl Confirm 06/07/19 23:35 Versed 5 Mg/5 Ml Administered 06/07/19 23:36 Dose 5 mg .ROUTE .STK-MED ONE Midazolam HCl 5 mg 06/07/19 23:37 06/07/19 23:53 Versed 5 Mg/5 Ml IV 06/07/19 23:38 3 mg STAT ONE Administration Midazolam HCl Confirm 06/08/19 00:23 Versed 50 Mg/ 10 Ml Mdv Administered 06/08/19 00:24 Dose 50 mg .ROUTE .STK-MED ONE Midazolam HCl 5 mg 06/08/19 01:00 Versed 5 Mg/5 Ml IV 06/08/19 01:01 STAT ONE Ondansetron HCl 4 mg 06/07/19 22:10 06/07/19 23:09 Zofran 4 Mg/2 Ml Vial IV 06/07/19 22:11 4 mg STAT ONE Administration Ondansetron HCl Confirm 06/07/19 23:07 Zofran 4 Mg/2 Ml Vial Administered 06/07/19 23:08 Dose 4 mg .ROUTE .STK-MED ONE Rocuronium [place] 25 mg 06/08/19 00:59 Zemuron 100 Mg/10 Ml IV 06/08/19 01:00 STAT ONE Succinylcholine Chloride 100 mg 06/08/19 00:58 Quelicin Fliptop 200 Mg/10 Ml IV 06/08/19 00:59 STAT ONE Succinylcholine Chloride 50 mg 06/08/19 00:58 Quelicin Fliptop 200 Mg/10 Ml IV 06/08/19 00:59 STAT ONE Lab/Rad Data: Laboratory Result Diagrams 06/07/19 00:55 06/07/19 00:55 Laboratory Results 06/08/19 06/07/19 06/07/19 Range/Units 00:55 22:20 22:20 WBC (4.0-10.5) K/mm3 RBC (4.1-5.6) M/mm3 Hgb (12.5-18.0) gm/dl Hct (42-50) % MCV (78-100) fl MCH (26-32) pg MCHC (32-36) g/dl RDW (11.5-14.0) % Plt Count (150-450) K/mm3 MPV (7.5-11.0) fl Gran % (36.0-66.0) % Eos # (Auto) (0-0.5) Absolute Lymphs (auto) (1.0-4.6) Absolute Monos (auto) (0.0-1.3) Lymphocytes % (24.0-44.0) % Monocytes % (0.0-12.0) % Eosinophils % (0.00-5.0) % Basophils % (0.0-0.4) % Absolute Granulocytes (1.4-6.9) Basophils # (0-0.4) Puncture Site LFEMORAL pCO2 48 H (35-45) mmHg pO2 139 H* (75-100) mmHg Base Excess -6.9 L (-2.0-2.0) O2 Saturation 97.2 (94-100) g/dF ABG pH 7.24 L* (7.35-7.45) ABG HCO3 20.6 L (22-28) ABG O2 Sat (Measured) 99.1 (95-100) % Randy Test NOT APPLICABLE A-a Gradient 15 a/A Ratio 0.90 Hemoglobin 12.0 Carboxyhemoglobin 1.3 (0.0-6.9) % THgb Methemoglobin 0.7 L (1.4-1.5) % Temperature 37.0 C POC O2 Flow Rate 30 % Vent Mode A/C Vent Rate 14 /MIN Tidal Volume 550 cc Sodium (137-145) mmol/L Potassium 3.2 L (3.5-5.1) mmol/L Chloride (98-107) mmol/L Carbon Dioxide (22-30) mmol/L Anion Gap (5-15) MEQ/L BUN (9-20) mg/dL Creatinine (0.66-1.25) mg/dL Estimated GFR ML/MIN Glucose (74-106) mg/dL Calcium (8.4-10.2) mg/dL Total Bilirubin (0.2-1.3) mg/dL AST (17-59) U/L ALT (0-50) U/L Alkaline Phosphatase (38-126) U/L Serum Total Protein (6.3-8.2) g/dL Albumin (3.5-5.0) g/dL Urine Color YELLOW (YELLOW) Urine Appearance CLEAR (CLEAR) Urine pH 6.0 (5-6) Ur Specific [place] 1.033 (1.005-1.025) Urine Protein 30 (Negative) Urine Ketones SMALL (NEGATIVE) Urine Blood NEGATIVE (0-5) Cirilo/ul Urine Nitrite NEGATIVE (NEGATIVE) Urine Bilirubin NEGATIVE (NEGATIVE) Urine Urobilinogen NEGATIVE (0-1) mg/dL Ur Leukocyte Esterase NEGATIVE (NEGATIVE) Urine WBC (Auto) 0-2 (0-5) /HPF Urine RBC (Auto) 3-5 (0-2) /HPF Urine Mucus (Auto) MANY (NEGATIVE) /HPF Urine Sperm (Auto) PRESENT (NEGATIVE) /HPF Urine Culture Reflexed NO (NO) Urine Glucose NEGATIVE (NEGATIVE) mg/dL Salicylates (2-20) mg/dL Urine Opiates Level NEGATIVE (NEGATIVE) Ur Methadone NEGATIVE (NEGATIVE) Acetaminophen (10-30) ug/ml Urine Barbiturates NEGATIVE (NEGATIVE) Ur Phencyclidine (PCP) NEGATIVE (NEGATIVE) Urine Amphetamine POSITIVE (NEGATIVE) U Benzodiazepine Level POSITIVE (NEGATIVE) Urine Cocaine NEGATIVE (NEGATIVE) Urine Marijuana (THC) POSITIVE (NEGATIVE) Ethyl Alcohol (0-10) mg/dL 06/07/19 06/07/19 Range/Units 00:55 00:55 WBC 13.0 H (4.0-10.5) K/mm3 RBC 3.89 L (4.1-5.6) M/mm3 Hgb 12.0 L (12.5-18.0) gm/dl Hct 34.9 L (42-50) % MCV 89.7 (78-100) fl MCH 30.8 (26-32) pg MCHC 34.4 (32-36) g/dl RDW 13.7 (11.5-14.0) % Plt Count 187 (150-450) K/mm3 MPV 9.9 (7.5-11.0) fl Gran % 58.1 (36.0-66.0) % Eos # (Auto) 0.06 (0-0.5) Absolute Lymphs (auto) 3.21 (1.0-4.6) Absolute Monos (auto) 2.11 H (0.0-1.3) Lymphocytes % 24.7 (24.0-44.0) % Monocytes % 16.2 H (0.0-12.0) % Eosinophils % 0.5 (0.00-5.0) % Basophils % 0.5 (0.0-0.4) % Absolute Granulocytes 7.58 H (1.4-6.9) Basophils # 0.06 (0-0.4) Puncture Site pCO2 (35-45) mmHg pO2 (75-100) mmHg Base Excess (-2.0-2.0) O2 Saturation (94-100) g/dF ABG pH (7.35-7.45) ABG HCO3 (22-28) ABG O2 Sat (Measured) (95-100) % Randy Test A-a Gradient a/A Ratio Hemoglobin Carboxyhemoglobin (0.0-6.9) % THgb Methemoglobin (1.4-1.5) % Temperature C POC O2 Flow Rate % Vent Mode Vent Rate /MIN Tidal Volume cc Sodium 139 (137-145) mmol/L Potassium 3.3 L (3.5-5.1) mmol/L Chloride 109 H (98-107) mmol/L Carbon Dioxide 22 (22-30) mmol/L Anion Gap 10.8 (5-15) MEQ/L BUN 18 (9-20) mg/dL Creatinine 0.65 L (0.66-1.25) mg/dL Estimated GFR > 60.0 ML/MIN Glucose 100 (74-106) mg/dL Calcium 8.1 L (8.4-10.2) mg/dL Total Bilirubin 0.90 (0.2-1.3) mg/dL AST 94 H (17-59) U/L ALT 42 (0-50) U/L Alkaline Phosphatase 66 (38-126) U/L Serum Total Protein 6.5 (6.3-8.2) g/dL Albumin 3.7 (3.5-5.0) g/dL Urine Color (YELLOW) Urine Appearance (CLEAR) Urine pH (5-6) Ur Specific [place] (1.005-1.025) Urine Protein (Negative) Urine Ketones (NEGATIVE) Urine Blood (0-5) Cirilo/ul Urine Nitrite (NEGATIVE) Urine Bilirubin (NEGATIVE) Urine Urobilinogen (0-1) mg/dL Ur Leukocyte Esterase (NEGATIVE) Urine WBC (Auto) (0-5) /HPF Urine RBC (Auto) (0-2) /HPF Urine Mucus (Auto) (NEGATIVE) /HPF Urine Sperm (Auto) (NEGATIVE) /HPF Urine Culture Reflexed (NO) Urine Glucose (NEGATIVE) mg/dL Salicylates < 1.0 L (2-20) mg/dL Urine Opiates Level (NEGATIVE) Ur Methadone (NEGATIVE) Acetaminophen < 10 L (10-30) ug/ml Urine Barbiturates (NEGATIVE) Ur Phencyclidine (PCP) (NEGATIVE) Urine Amphetamine (NEGATIVE) U Benzodiazepine Level (NEGATIVE) Urine Cocaine (NEGATIVE) Urine Marijuana (THC) (NEGATIVE) Ethyl Alcohol < 10 (0-10) mg/dL - Progress Progress: improved, re-examined Progress Note: 06/07/19 23:48 I spoke with the Poison Control Center. My plan is to continue with the benzodiazepines. The patient is very agitated and because of this and we noticed that the left EJ by the EMS service has infiltrated. We will need to give the patient intramuscular Ativan and Versed to calm his agitation down before we can place another IV. For patient and staff safety we will intubate the patient. Will intubate the patient. Etomidate, Versed and succinylcholine are appropriate per Poison Control Center for intubation. Patient's urine drug screen is positive for amphetamines THC and benzodiazepines. 06/07/19 23:54 06/08/19 01:12 Medical decision making: In order to protect the patient and staff from this patient's extreme agitation and outbursts, and after attempting both physical restraints and chemical restraints using benzodiazepines, it was felt that it is in the best interest of the patient to be intubated in order for us to be able to control his airway, control the patient's agitation and to obtain the necessary laboratory work-up needed to best serve this patient. The post intubation chest x-ray reveals the tip of the ET tube to be just above the kandace in appropriate position. 06/08/19 02:[address] Elizondo in the emergency department at [facility]. I reviewed the patient's history, condition, x-ray findings and laboratory data. Patient is accepted by Dr. Elizondo to be transported via EMS to his facility for further management. - Departure Departure Disposition: Transfer Clinical Impression: On mechanically assisted ventilation, Methamphetamine abuse, Methamphetamine- induced psychotic disorder, Auditory hallucinations, Suicidal ideation, Homicidal ideation Condition: Serious Critical Care Time: Yes Critical Care Time(excluding separately billable procedures): Critical 30-74 mins Referrals: ANAND PERDOMO [Primary Care Provider] -
[2019-06-07] MEDS ORDERED: Ativan 2 MG/1 ML VIAL ONE ×2 (23:05→23:54)
[2019-06-07 23:07] LABS: Appearance CLEAR (CLEAR); Barbiturate,Urine NEGATIVE (NEGATIVE); Benzodiazepine,Urine POSITIVE (NEGATIVE); Bilirubin NEGATIVE (NEGATIVE); Blood NEGATIVE Ery/ul (0-5); Cocaine,Urine NEGATIVE (NEGATIVE); Glucose NEGATIVE (NEGATIVE); Ketones SMALL (NEGATIVE); Leukocyte Esterase NEGATIVE (NEGATIVE); Methadone,Urine NEGATIVE (NEGATIVE); Mucus MANY /HPF (NEGATIVE); Nitrite NEGATIVE (NEGATIVE); Opiate,Urine NEGATIVE (NEGATIVE); PCP,Urine NEGATIVE (NEGATIVE); Protein,Urine Dip 30 (Negative); Specific Gravity 1.033 (1.005-1.025); Sperm PRESENT /HPF (NEGATIVE); THC,Urine POSITIVE (NEGATIVE); Urobilinogen NEGATIVE mg/dL (0-1); WBC 0-2 /HPF (0-5)
[2019-06-07] MEDS ORDERED: Zofran 4 MG/2 ML VIAL ONE (23:07)
[2019-06-07] MEDS ORDERED: Sodium Chloride 0.9% 1000 ML 1,000 ML ONE (23:08)
[2019-06-07] MEDS ORDERED: Versed 2 MG/2 ML Injection IV ONE (23:34)
[2019-06-07] MEDS ORDERED: Versed 50 MG/ 10 Ml MDV*** 50 MG in Sodium Chloride 0.9% 250 ML 240 ML IV PRN (23:35)
[2019-06-07] MEDS ORDERED: VERSED 5 MG/5 ML ONE (23:35)
[2019-06-07] MEDS ORDERED: VERSED 5 MG/5 ML IV ONE (23:37)
[2019-06-07 23:44] LABS: Amphetamine,Urine POSITIVE (NEGATIVE)
[2019-06-07] MEDS ORDERED: Ativan 2 MG/1 ML VIAL IM ONE (23:53)
[2019-06-08] MEDS ORDERED: Sodium Chloride 0.9% 250 ML 250 ML IV ONE (00:23)
[2019-06-08] MEDS ORDERED: Versed 50 MG/ 10 Ml MDV ONE (00:23)
[2019-06-08] MEDS ORDERED: Quelicin Fliptop 200 MG/10 ML IV ONE ×2 (00:58)
[2019-06-08] MEDS ORDERED: Zemuron 100 MG/10 ML IV ONE (00:59)
[2019-06-08] MEDS ORDERED: Amidate 20 MG/10 ML IV ONE (00:59)
[2019-06-08] MEDS ORDERED: VERSED 5 MG/5 ML IV ONE (01:00)
[2019-06-08] MEDS ORDERED: Ativan 2 MG/1 ML VIAL IV ONE (01:00)
[2019-06-08 01:02] LABS: Absolute Neutrophil Ct (ANC) 7.58 (1.4-6.9); BASOPHIL % 0.5 % (0.0-0.4); Basophil (Absolute #) 0.06 (0-0.4); Eosinophil % 0.5 % (0.00-5.0); Eosinophil (Absolute #) 0.06 (0-0.5); Hematocrit 34.9 % (42-50); Lymphocyte (Absolute #) 3.21 (1.0-4.6); Lymphocytes % 24.7 % (24.0-44.0); Mean Cell Volume 89.7 fl (78-100); Mean Corpuscular Hemoglobin 30.8 pg (26-32); Mean Corpuscular Hgb Concent. 34.4 g/dl (32-36); Mean Platelet Volume 9.9 fl (7.5-11.0); Monocyte (Absolute #) 2.11 (0.0-1.3); Monocytes % 16.2 % (0.0-12.0); Neutrophil % 58.1 % (36.0-66.0); Platelet Count 187 K/mm3 (150-450); Red Blood Count 3.89 M/mm3 (4.1-5.6); Red Cell Distribution Width 13.7 % (11.5-14.0)
[2019-06-08 01:04] LABS: A-aADO2 15; ABG POTASSIUM 3.2 (3.5-5.1); ABG SITE LFEMORAL; ARTERIAL BLD GAS O2 SATURATION 99.1 % (95-100); ARTERIAL BLOOD GAS BASE EXCESS -6.9 (-2.0-2.0); ARTERIAL BLOOD GAS FIO2 30 %; ARTERIAL BLOOD GAS PCO2 48 mmHg (35-45); ARTERIAL BLOOD GAS PO2 139 mmHg (75-100); ARTERIAL BLOOD GAS VENT MODE A/C; ARTERIAL BLOOD GAS VENT RATE 14 /MIN; ARTERIAL BLOOD GAS pH 7.24 (7.35-7.45); CARBOXYHEMOGLOBIN 1.3 % THgb (0.0-6.9); HCO3- 20.6 (22-28); HGB O2 SAT 97.2 g/dF (94-100); Methhemoglobin 0.7 % (1.4-1.5)
[2019-06-08] MEDS ORDERED: Sodium Chloride 0.9% 1000 ML 1,000 ML ONE (01:09)
[2019-06-08 01:16] LABS: ALBUMIN 3.7 g/dL (3.5-5.0); ALKALINE PHOSPHATASE 66 U/L (38-126); ANION GAP 10.8 MEQ/L (5-15); BLOOD UREA NITROGEN 18 mg/dL (9-20); CHLORIDE 109 mmol/L (98-107); Calcium 8.1 mg/dL (8.4-10.2); Carbon Dioxide 22 mmol/L (22-30); Creatinine 1 0.65 mg/dL (0.66-1.25); Glucose 100 mg/dL (74-106); Potassium 3.3 mmol/L (3.5-5.1); SGOT/AST 94 U/L (17-59); SGPT/ALT 42 U/L (0-50); SODIUM 139 mmol/L (137-145); Total Protein 6.5 g/dL (6.3-8.2)
[2019-06-08 01:17] LABS: ACETAMINOPHEN < 10 ug/ml (10-30); ETHYL ALCOHOL < 10 mg/dL (0-10); SALICYLATE < 1.0 mg/dL (2-20)
[2019-06-08 02:22] VITALS: BP 136/89; PULSE 91; O2SAT 100
[2019-06-08 02:50] LABS: Slide Review 1 YES
--- NOTE | 2019-06-08 09:12 | XRAY ---
Indication: Endotracheal tube placement. Comparison: October 28, 2017. Portable chest demonstrates new endotracheal tube tip 3 cm above the kandace. Lungs remain clear. Heart and mediastinal structures within normal limits. Bony thorax intact. Impression: Again nonacute chest with new endotracheal tube in good position.
== END 2019-06-08 02:38 | disposition short-term general hospital (02) ==
LOC: ED 22:07
DX: F15.151 Other stimulant abuse with stimulant-induced psychotic disorder with hallucinations (principal); R45.851 Suicidal ideations; R45.850 Homicidal ideations; R45.1 Restlessness and agitation; F31.9 Bipolar disorder, unspecified; Z72.0 Tobacco use; F12.90 Cannabis use, unspecified, uncomplicated; Z85.72 Personal history of non-Hodgkin lymphomas; Z85.841 Personal history of malignant neoplasm of brain
CPT/HCPCS: 31500; 36000; 36415; 36600; 51702; 71045; 80053; 80307; 81001; 82375; 82803; 85025; 93005; 93041; 94002; 94770; 96365; 96374; 96375; 96376; 99285; 99291; 99292; G0481; J0330; J2060; J2250; J2405; G0480